=== PATIENT | male | born 1980 | race Caucasian/White ===

== ENCOUNTER 2020-05-27 05:31 | Inpatient (IN) | payer MEDICAID ==
[~2020-05-27] VITALS: Ht 167.6 cm; Wt 66.7 kg
--- NOTE | 2020-05-27 05:39 | NUR ---
PATIENT CAME TO ER BED 6 C/O PAIN UPON BREATHING ON BILATERAL RIB CAGE. PATIENT DENIES ANY TRAUMA. PATIENT STATES THAT 3 DAYS AGO, HE STARTED HAVING TROUBLE BREATHING. PATIENT IS AAOX4. NO SOB. BREATHING EVENLY AND UNLABORED ON ROOM AIR. CONNECTED TO MONITOR.
[2020-05-27] MEDS ORDERED: CEFTRIAXONE 1GM BAG (ER ONLY) 50 ML IV ONE ×2 (06:14→06:30)
[2020-05-27] MEDS ORDERED: AZITHROMYCIN 500 MG VIAL ONE (06:14)
--- NOTE | 2020-05-27 06:26 | NUR ---
EKG NOT NEEDED-PER MD
[2020-05-27] MEDS ORDERED: IV NS 0.9% 1,000 ML BAG IV ONE (06:30)
[2020-05-27] MEDS ORDERED: AZITHROMYCIN 500 MG in IV D5W 250 ML IV ONE (06:30)
--- NOTE | 2020-05-27 06:39 | NUR ---
blood collected and sent to the lab with type caster.
[2020-05-27 06:51] LABS: CALCIUM, SERUM 8.9 mg/dL (8.5-10.1); CARBON DIOXIDE 29 mmol/L (21-32); CHLORIDE 101 mmol/L (98-107); CREATININE 1.6 mg/dL (0.6-1.3); GLUCOSE 113 mg/dL (74-106); POTASSIUM 3.7 mmol/L (3.5-5.1); SODIUM SERUM 138 mmol/L (136-145); UREA NITROGEN, BLOOD 35 mg/dL (7-18)
[2020-05-27 06:54] LABS: BASOPHILS % (AUTO) 0.2 % (0.0-2.0); EOSINOPHILS % (AUTO) 2.5 % (0.0-6.0); HEMATOCRIT 42 % (39-51); HEMOGLOBIN 13.8 g/dL (13.5-17.5); LYMPHOCYTES # (AUTO) 1.4 /CMM (0.8-4.8); LYMPHOCYTES % (AUTO) 12.5 % (20.0-44.0); MEAN CORPUSCULAR HGB CONC 33 g/dl (31.0-36.0); MEAN CORPUSCULAR VOLUME 93 fL (80-96); MONOCYTES # (AUTO) 0.6 /CMM (0.1-1.30); MONOCYTES % (AUTO) 5.6 % (2.0-12.0); NEUTROPHILS # (AUTO) 8.9 /CMM (1.8-8.9); NEUTROPHILS % (AUTO) 79.2 % (43.0-81.0); PLATELET COUNT (AUTO) 208 /CMM (150-450); WHITE BLOOD COUNT (AUTO) 11.2 K/uL (4.3-11.0)
[2020-05-27 06:56] LABS: ALANINE AMINOTRANSFERASE 395 U/L (12-78); ALBUMIN 2.6 g/dL (3.4-5.0); ALKALINE PHOSPHATASE 91 U/L (46-116); ASPARTATE AMINOTRANSFERASE 160 U/L (15-37); BILIRUBIN,DIRECT 0.2 mg/dL (0.0-0.2); BILIRUBIN,TOTAL 0.7 mg/dL (0.2-1.0); TOTAL PROTEIN, SERUM 7.1 g/dL (6.4-8.2)
--- NOTE | 2020-05-27 06:57 | NUR ---
RSV, Flu, Urine, and covid swab collected and sent to lab.
--- NOTE | 2020-05-27 07:17 | NUR ---
REPORT GIVEN TO SANIA TAM FOR SILVANA.
--- NOTE | 2020-05-27 10:37 | NUR ---
REPORT GIVEN TO DAWIT TAM FOR SILVANA.
[2020-05-27] MEDS ORDERED: ACETAMINOPHEN 325 MG TABLET PO PRN (11:00)
[2020-05-27] MEDS ORDERED: MAG HYDROX/AL HYDROX/SIMETH 30 ML UDC PO PRN (11:00)
[2020-05-27] MEDS ORDERED: Z GUARD REMEDY 2 OZ OINT TP PRN (11:00)
[2020-05-27] MEDS ORDERED: MAGNESIUM HYDROXIDE 30 ML UDC PO PRN (11:00)
[2020-05-27] MEDS ORDERED: ONDANSETRON HCL/PF 4 MG/2 ML VIAL IVP PRN (11:00)
--- NOTE | 2020-05-27 11:05 | NUR ---
PATIENT TRANSFERRED TO ROOM 113-1 IN STABLE CONDITION.
--- NOTE | 2020-05-27 11:30 | NUR ---
RN OPENING NOTES RECEIVED PATIENT FROM ER, PATIENT BROUGHT IN VIA WHEELCHAIR, ON ROOM AIR, SATURATING WELL, NO SIGNS OF RESPIRATORY DISTRESS NOTED. PATIENT IS A/O X4, NO ACUTE DISTRESS NOTED. PATIENT IS PLACED IN THE ROOM, CLEANED AND PLACED IN THE HOSPITAL GOWN. WOUNDS DOCUMENTED AND PICTURES PLACED IN THE CHART. PATIENT IS STABLE AT THE MOMENT, ALL ORDERS ARE BEING CARRIED OUT, PLACED ON PRINCIPLE SOFTWARE ENGINEER, SR NOTED. SAFETY MAINTAINED, CALL LIGHT WITHIN REACH, WILL CONTINUE TO MONITOR CLOSELY.
[2020-05-27] MEDS: IV 1/2NS 1000 ML 1,000 ML IV SCH (11:51)
[2020-05-27] MEDS: ASPIRIN 81 MG TAB.CHEW PO SCH (11:51)
[2020-05-27] MEDS: DEXAMETHASONE SOD PHOSPHATE 10 MG/ML VIAL IV SCH (11:52)
[2020-05-27] MEDS: ENOXAPARIN SODIUM 40 MG/0.4 ML DISP.SYRIN SQ SCH (11:53)
[2020-05-27 12:00] VITALS: BP 122/80
[2020-05-27 16:00] VITALS: BP 112/70
--- NOTE | 2020-05-27 18:25 | NUR ---
RN CLOSING NOTES PATIENT REMAINS IN BED. O2 SATURATION OF 99% ON ROOM AIR. NO SIGNS OF RESPIRATORY DISTRESS NOTED. PATIENT IS A/O X4. ON BOMB SQUAD COMMANDER, SR NOTED @ 70s. SAFETY MAINTAINED, CALL LIGHT WITHIN REACH, BED LOCKED AND AT LOWEST POSITION. WILL ENDORSE TO FISHER OYSTER FOR SILVANA.
[2020-05-27 20:00] VITALS: BP 112/71
[2020-05-27] MEDS: HYDROCODONE/APAP 5/325MG TABLET PO PRN (20:20)
--- NOTE | 2020-05-27 20:45 | NUR ---
PRESCHOOL TEACHER AIDE NOTES PT WAS COMPLAINING OF 8/10 ANTERIOR CHEST PAIN. ADMINISTERED PRN NORCO. PT NOW STATES HE HAS 0/10 CHEST PAIN.
[2020-05-28] VITALS: BP_SYST 110; BP_DIAS 64; BP_DIAS 71
[2020-05-28] MEDS: IV 1/2NS 1000 ML 1,000 ML IV SCH (00:40)
[2020-05-28 04:00] VITALS: BP 119/77
--- NOTE | 2020-05-28 04:51 | NUR ---
TYPO MACHINE OPERATOR NOTE PT IS EXPERIENCING EPISODES OF ASYMPTOMATIC BRADYCARDIA RANGING 45 - 80 BPM. HE HAS NO SYMPTOMS OF DIZZINESS, SOB, OR FATIGUE AT THIS TIME. HIS MOST RECENT BP IS 119/77 AND HAS NO S/S OF DISTRESS. WILL CONTINUE TO MONITOR FOR ANY CHANGES.
[2020-05-28] MEDS ORDERED: GUAIFENESIN/CODEINE 10 ML UDC PO PRN (06:00)
--- NOTE | 2020-05-28 06:07 | NUR ---
RN notes Called and spoke with Dr. Montague regarding patient's unproductive cough and episodes of bradycardia. Obtained order Robitussin DM q4h 5ml PRN, noted and carried out. Patient will be seen by Tay Pressley in am for episodes of bradycardia.
[2020-05-28] MEDS: GUAIFENESIN/D-METHORPHAN HB 5 ML UDC PO PRN ×3 (06:11→18:34)
[2020-05-28 06:33] LABS: BASOPHILS % (AUTO) 0.2 % (0.0-2.0); HEMATOCRIT 35 % (39-51); HEMOGLOBIN 11.5 g/dL (13.5-17.5); LYMPHOCYTES # (AUTO) 2.3 /CMM (0.8-4.8); LYMPHOCYTES % (AUTO) 19.5 % (20.0-44.0); MEAN CORPUSCULAR HGB CONC 33 g/dl (31.0-36.0); MEAN CORPUSCULAR VOLUME 93 fL (80-96); MONOCYTES # (AUTO) 1.1 /CMM (0.1-1.30); MONOCYTES % (AUTO) 9.3 % (2.0-12.0); NEUTROPHILS # (AUTO) 8.4 /CMM (1.8-8.9); PLATELET COUNT (AUTO) 197 /CMM (150-450); RED BLOOD CELL COUNT(AUTO) 3.75 MIL/uL (4.5-6.0); WHITE BLOOD COUNT (AUTO) 11.9 K/uL (4.3-11.0)
[2020-05-28 07:02] LABS: ALBUMIN 2.2 g/dL (3.4-5.0); BILIRUBIN,DIRECT 0.1 mg/dL (0.0-0.2); BILIRUBIN,TOTAL 0.3 mg/dL (0.2-1.0); CALCIUM, SERUM 8.7 mg/dL (8.5-10.1); MAGNESIUM 2.1 mg/dL (1.8-2.4); PHOSPHORUS 2.4 mg/dL (2.5-4.9); POTASSIUM 4.2 mmol/L (3.5-5.1); TOTAL PROTEIN, SERUM 6.3 g/dL (6.4-8.2)
--- NOTE | 2020-05-28 07:30 | NUR ---
RN NOTES RECEIVED ASLEEP, AWAKEN BY VERBAL STIMULI. A/OX4. NO SOB NOTED ON ROOM AIR. DENIES ANY PAIN AT THE MOMENT. AMBULATORY. IV ACCESS ON THE LAC G 20, IN PLACE. INTACT. FLUSHING GOOD. WITH ONGOING IVF AT DESIRED RATE. SITE NO TENDERNESS, NO INDICATION OF INFECTION OR INFILTRATION. ENCOURAGE TO VERBALIZE FEELINGS AND CONCERNS. TO CALL FOR HELP/ ASSISTANCE WHEN NEEDED. SAFETY MEASURES OBSERVED AND MAINTAINED. CALL LIGHT PLACED WITHIN REACH. REITERATED ISOLATION PRECAUTION. WILL CONTINUE TO MONITOR PATIENT ACCORDINGLY
[2020-05-28 08:00] VITALS: BP 120/87
--- NOTE | 2020-05-28 08:12 | NUR ---
WOUND CARE CONSULT: REVIEWED CHART, NURSING DOCUMENTATION AND PHOTOS WHICH INDICATE INTACT DEEP TISSUE INJURIES TO LEFT HEEL AND SACRAL AREA, PRESENT ON ADMISSION. RECOMMENDATIONS MADE FOR SKIN PROTECTION. DISCUSSED WITH NURSING STAFF. MD IN AGREEMENT WITH PLAN OF CARE.
[2020-05-28] MEDS: DEXAMETHASONE SOD PHOSPHATE 10 MG/ML VIAL IV SCH (09:15)
[2020-05-28] MEDS: CEFTRIAXONE 1 G in IV D5W 50 ML IV SCH (09:15)
[2020-05-28] MEDS: ASPIRIN 81 MG TAB.CHEW PO SCH (09:15)
[2020-05-28] MEDS: ENOXAPARIN SODIUM 40 MG/0.4 ML DISP.SYRIN SQ SCH (09:18)
[2020-05-28 09:28] LABS: BAND % (MANUAL) 6 % (0.0-5.0); LYMPHOCYTES % (MANUAL) 10 % (16-48); MONOCYTES % (MANUAL) 4 % (0-11.0); MYELOCYTES % 1 % (0-0); NEUTROPHILS % (MANUAL) 79 (42-76)
[2020-05-28] MEDS: AZITHROMYCIN 500 MG in IV D5W 250 ML IV SCH (10:06)
--- NOTE | 2020-05-28 11:10 | NUR ---
RECEIVED PATIENT IN BED. NO ACUTE DISTRESS NOTED, BUT COUGH PRESENT. PATIENT ON ROOM AIR, SATSURATING WELL AT 98%. PATIENT ALERT & ORIENTED X4. PATIENT ON FINISHER FIBERGLASS BOAT PARTS, SINUS RHYTHM NOTED. PATIENT REQUESTED COUGH MEDICINE, SO PRN ROBITUSSIN ADMINISTERED ORDERED. PATIENT IV ACCESS NOT PATENT. MIDLINE ORDERED. PATIENT SAFETY MEASURES MAINTAINED. CALL LIGHT WITHIN REACH. WILL CONTINUE TO MONITOR.
--- NOTE | 2020-05-28 11:15 | NUR ---
RN NOTES ENDORSED FOR CONTINUITY OF CARE. HANDS OFF
[2020-05-28 12:00] VITALS: BP 123/78
[2020-05-28] MEDS ORDERED: NEUTRA PHOS 1 POWD.PACKET PO ONE (12:00)
[2020-05-28 16:00] VITALS: BP 147/85
--- NOTE | 2020-05-28 18:27 | NUR ---
PATIENT IN BED. NO ACUTE DISTRESS NOTED. PATIENT ON ROOM AIR, SATSURATING WELL AT 98%. PATIENT ALERT & ORIENTED X4. PATIENT ON STEEL DIVISION SUPERVISOR, SINUS BRADYCARDIA NOTED WITH HEART RATE IN 50S. PATIENT LEFT UPPER ARM MIDLINE INTACT, PATENT, FLUSHED WELL. PATIENT SAFETY MEASURES MAINTAINED. CALL LIGHT WITHIN REACH. WILL ENDORSE PLAN OF CARE TO ONCOMING NURSE FOR CONTINUITY OF CARE
--- NOTE | 2020-05-28 19:15 | NUR ---
RN OPENING NOTES: RECEIVED PT A/OX4 IN BED RESTING COMFORTABLY. PATIENT IN NO S/SX OF ACUTE DISTRESS AT THIS TIME. NO SOB NOTED. PATIENT'S BREATHING IS EVEN AND UNLABORED. PATIENT IS ON RA; TOLERATING WELL AND SATURATING AT 98% AT THE TIME OF RECEIVED. PATIENT ON TELE MONITORING READING SINUS KIRSTIN AT TIME OF RECEIVED; HR IS @58 BPM. PATIENT ON REGULAR DIET. NOTED IV SITE ON L UA MIDLINE #18; PATENT IN INTACT,NO S/S OF INFECTION OR INFILTRATION.SAFETY MEASURES HAVE BEEN PROVIDED AND IMPLEMENTED. PATIENT BED ALARM IS ON. HEAD OF BED ELEVATED. BED IS LOCKED, IN LOWEST POSITION AND SIDE RAILS UP. CALL LIGHT WITHIN REACH OF THE PATIENT. ISOLATION PRECAUTIONS IN PLACE. WILL CONTINUE TO MONITOR AND REASSESS FOR ANY CHANGES.
[2020-05-28 20:00] VITALS: BP 122/67
[2020-05-28] MEDS: HYDROCODONE/APAP 5/325MG TABLET PO PRN (21:02)
[2020-05-29] VITALS: BP 120/73
[2020-05-29 04:00] VITALS: BP 107/58
[2020-05-29 05:19] LABS: BASOPHILS % (AUTO) 0.1 % (0.0-2.0); EOSINOPHILS % (AUTO) 0.2 % (0.0-6.0); HEMATOCRIT 35 % (39-51); HEMOGLOBIN 11.3 g/dL (13.5-17.5); LYMPHOCYTES % (AUTO) 24.7 % (20.0-44.0); MEAN CORPUSCULAR HGB CONC 33 g/dl (31.0-36.0); MEAN CORPUSCULAR VOLUME 93 fL (80-96); MONOCYTES # (AUTO) 1.3 /CMM (0.1-1.30); MONOCYTES % (AUTO) 10.6 % (2.0-12.0); NEUTROPHILS # (AUTO) 7.8 /CMM (1.8-8.9); NEUTROPHILS % (AUTO) 64.4 % (43.0-81.0); PLATELET COUNT (AUTO) 217 /CMM (150-450); RED BLOOD CELL COUNT(AUTO) 3.69 MIL/uL (4.5-6.0); WHITE BLOOD COUNT (AUTO) 12.2 K/uL (4.3-11.0)
[2020-05-29 05:46] LABS: CALCIUM, SERUM 8.8 mg/dL (8.5-10.1); CREATININE 0.9 mg/dL (0.6-1.3); PHOSPHORUS 3.5 mg/dL (2.5-4.9); POTASSIUM 4.2 mmol/L (3.5-5.1)
[2020-05-29 08:00] VITALS: BP 103/61
[2020-05-29] MEDS: ASPIRIN 81 MG TAB.CHEW PO SCH (08:36)
[2020-05-29] MEDS: CEFTRIAXONE 1 G in IV D5W 50 ML IV SCH (08:36)
[2020-05-29] MEDS: DEXAMETHASONE SOD PHOSPHATE 10 MG/ML VIAL IV SCH (08:37)
[2020-05-29] MEDS: ENOXAPARIN SODIUM 40 MG/0.4 ML DISP.SYRIN SQ SCH (08:38)
--- NOTE | 2020-05-29 08:45 | NUR ---
RN NOTES REPORT GIVEN TO SOHAN TAM FOR CONTINUITY OF CARE
--- NOTE | 2020-05-29 09:00 | NUR ---
RECEIVED REPORT BY IRMA.
[2020-05-29] MEDS: AZITHROMYCIN 500 MG in IV D5W 250 ML IV SCH (09:50)
[2020-05-29 12:00] VITALS: BP 119/60
== END 2020-05-29 14:30 | disposition left against medical advice (07) | DRG 190 ==
LOC: ER 05:31 → MEDSG1 10:57 → TELE1 11:49 → ICU 05-28 15:08
PROVIDERS: ADMIT Internal Medicine; ATTEND Internal Medicine
PROC: 05HY33Z Insertion of Infusion Device into Upper Vein, Percutaneous Approach (ICD-10-PCS; principal; 2020-05-28)
DX: I21.4 Non-ST elevation (NSTEMI) myocardial infarction (principal); J13 Pneumonia due to Streptococcus pneumoniae; N17.0 Acute kidney failure with tubular necrosis; F17.200 Nicotine dependence, unspecified, uncomplicated; E87.2 Acidosis; I42.9 Cardiomyopathy, unspecified; R74.0 Nonspecific elevation of levels of transaminase and lactic acid dehydrogenase [LDH]; E43 Unspecified severe protein-calorie malnutrition; E88.09 Other disorders of plasma-protein metabolism, not elsewhere classified; R64 Cachexia; Z68.23 Body mass index [BMI] 23.0-23.9, adult; F19.11 Other psychoactive substance abuse, in remission
CPT/HCPCS: 36415; 71045-TC; 80048-TC; 80076-TC; 83605-TC; 83735-TC; 84100-TC; 84484-TC; 85025-TC; 85730-TC; 86140-TC; 87040-TC; 87070-TC; 87086-TC; 93307-TC; G0378; J0456; J0696; J1100; J1650; J3490; J7030; J7060; U0003-CS

== ENCOUNTER 2021-01-11 18:49 | Emergency (ER) | payer SELFPAY ==
[~2021-01-11] VITALS: Ht 167.6 cm; Wt 66.7 kg
--- NOTE | 2021-01-11 18:55 | NUR ---
, from [facility], c/o left hand pain s/p tripped and fall padlock stucked on his hand, 10/10 pain scale, tdap 2 months ago. Patient a/ox4, breathing even and unlabored, minimal bleeding on left hand.
[2021-01-11] MEDS ORDERED: HYDROCODONE/APAP 5/325MG TABLET ONE (18:59)
[2021-01-11] MEDS ORDERED: TDAP [DIPH/PERTUSSIS/TET] 0.5 ML VIAL IM ONE (19:00)
[2021-01-11] MEDS ORDERED: HYDROCODONE/APAP 5/325MG TABLET PO ONE (19:00)
--- NOTE | 2021-01-11 19:07 | NUR ---
MERCHANDISE COORDINATOR AT BEDSIDE.
[2021-01-11] MEDS ORDERED: LIDOCAINE 1%-EPI 1:100,000 20 ML VIAL ONE (19:16)
--- NOTE | 2021-01-11 19:23 | NUR ---
RAIZA ARDON AT BEDSIDE FOR WOUND/LACERATION CARE
[2021-01-11] MEDS ORDERED: CEFTRIAXONE 500 MG VIAL IM ONE (19:30)
[2021-01-11] MEDS ORDERED: CEPH500C2 PO (19:57)
[2021-01-11] MEDS ORDERED: IBUP-1955 PO (19:57)
[2021-01-11] MEDS ORDERED: CEFTRIAXONE 500 MG VIAL ONE (20:14)
[2021-01-11] MEDS ORDERED: LIDOCAINE /MPF 1% VIAL 5 ML VIAL ONE (20:14)
--- NOTE | 2021-01-11 20:37 | NUR ---
Patient discharged to home in stable condition. Written and verbal after care instructions given. Patient verbalizes understanding of instruction.Pt ambulatory with a steady gait
[2021-01-11 20:39] VITALS: BP 137/79
== END 2021-01-11 20:39 | disposition home or self-care (01) ==
LOC: ER 18:51
DX: S60.552A Superficial foreign body of left hand, initial encounter (principal); F17.200 Nicotine dependence, unspecified, uncomplicated; Z79.899 Other long term (current) drug therapy; W45.8XXA Other foreign body or object entering through skin, initial encounter; Y93.89 Activity, other specified; Y92.89 Other specified places as the place of occurrence of the external cause; Y99.8 Other external cause status
CPT/HCPCS: 10120; 73130 ×2; 96372; 99284; J0696; J3490 ×2

== ENCOUNTER 2021-12-28 06:44 | Emergency (ER) | payer OTHER ==
[~2021-12-28] VITALS: Ht 167.6 cm; Wt 72.6 kg
[~2021-12-28 06:44] MED LIST: CEPH500C2 PO; IBUP-1955 PO
--- NOTE | 2021-12-28 07:17 | NUR ---
DR HATCH AT BEDSIDE FOR EVAL
[2021-12-28] MEDS ORDERED: IBUPROFEN 400 MG TABLET PO ONE (07:30)
--- NOTE | 2021-12-28 07:39 | NUR ---
PT TO RADIOLOGY FOR A MANDIBLE XRAY.
[2021-12-28] MEDS ORDERED: IBUPROFEN 400 MG TABLET ONE (07:40)
[2021-12-28] MEDS ORDERED: IBUP-1957 PO (08:51)
[2021-12-28 09:04] VITALS: BP 110/70
== END 2021-12-28 08:55 | disposition home or self-care (01) ==
LOC: ER 06:44
DX: R68.84 Jaw pain (principal); F17.200 Nicotine dependence, unspecified, uncomplicated; Z98.890 Other specified postprocedural states; Z59.00 Homelessness unspecified
CPT/HCPCS: 70110-TC

== ENCOUNTER 2022-06-01 14:05 | Emergency (ER) | payer OTHER ==
[~2022-06-01] VITALS: Ht 167.6 cm; Wt 65.8 kg
[~2022-06-01 14:05] MED LIST changes: +IBUP-1957 PO
--- NOTE | 2022-06-01 14:30 | NUR ---
BIBS C/O JAW PAIN X 1YEAR.THE PATIENT RATES PAIN 2/10. WILL CONTINUE TO MONITOR THE PATIENT.
[2022-06-01] MEDS ORDERED: SULF1TAB48 PO (14:36)
[2022-06-01] MEDS ORDERED: TRAM-351 PO (14:36)
[2022-06-01 14:43] VITALS: BP 138/75
--- NOTE | 2022-06-01 14:43 | NUR ---
Patient discharged to home in stable condition. Written and verbal after care instructions given. Patient verbalizes understanding of instruction.
== END 2022-06-01 14:43 | disposition home or self-care (01) ==
LOC: ER 14:13
DX: R68.84 Jaw pain (principal); F17.200 Nicotine dependence, unspecified, uncomplicated; Z59.00 Homelessness unspecified